=== PATIENT | female | born 1995 | race Native Hawaiian/Other Pacific Islander ===

== ENCOUNTER 2017-12-04 18:30 | Emergency (ER) | payer SELFPAY ==
[~2017-12-04] VITALS: Ht 175.3 cm; Wt 140.9 kg
[2017-12-04] MEDS ORDERED: ERYTHROMYCIN 0.5% 3.5 GM TUBE OPHTHALMIC OINTMENT OD ONE (19:45)
[2017-12-04 20:18] VITALS: BP 129/90
== END 2017-12-04 20:54 | disposition home or self-care (01) ==
LOC: EMS 18:31
DX: H10.9 Unspecified conjunctivitis (principal); R03.0 Elevated blood-pressure reading, without diagnosis of hypertension; Z88.0 Allergy status to penicillin

== ENCOUNTER 2018-11-23 13:08 | Emergency (ER) | payer MEDICAID ==
[~2018-11-23] VITALS: Ht 177.8 cm; Wt 150.0 kg
[2018-11-23 15:19] VITALS: BP 137/75
== END 2018-11-23 15:32 | disposition home or self-care (01) ==
LOC: EMS 13:09
DX: K08.89 Other specified disorders of teeth and supporting structures (principal); R03.0 Elevated blood-pressure reading, without diagnosis of hypertension; Z88.0 Allergy status to penicillin

== ENCOUNTER → 2023-11-21 | Emergency (ER) | payer MEDICAID, OTHER ==
[~2023-11-21] VITALS: Ht 177.8 cm; Wt 148.0 kg
[2023-11-21 12:33] VITALS: TEMP 98.6
[2023-11-21 13:23] LABS: COVID AG,FIA SOURCE NASAL SWAB
[2023-11-21 13:44] LABS: SARS-COV2 (COVID) ANTIGEN,FIA Negative (Negative)
[2023-11-21 13:45] LABS: INFLUENZA TYPE A NEGATIVE FOR TYPE A (NEGATIVE); INFLUENZA TYPE B NEGATIVE FOR TYPE B (NEGATIVE)
[2023-11-21 13:52] LABS: BASOPHILS % (AUTO) 0.4 % (0.0-2.0); EOSINOPHILS % (AUTO) 5.8 % (1.0-6.0); HEMATOCRIT 39.8 % (36-46); HEMOGLOBIN 13.3 g/dL (12.0-16.0); LYMPHOCYTES # (AUTO) 2.7 K/uL (1.0-4.8); LYMPHOCYTES % (AUTO) 25.6 % (22.0-44.0); MEAN CORPUSCULAR HEMOGLOBIN 28.6 pg (26.0-34.0); MEAN CORPUSCULAR HGB CONC 33.5 G/dL (31.0-37.0); MEAN CORPUSCULAR VOLUME 85 fL (80-100); MONOCYTES # (AUTO) 0.9 K/uL (0.1-1.0); MONOCYTES % (AUTO) 8.6 % (2.0-9.0); NEUTROPHILS # (AUTO) 6.2 K/uL (1.8-7.7); NEUTROPHILS % (AUTO) 59.6 % (40.0-70.0); PLATELET COUNT (AUTO) 367 K/uL (150-450); RED BLOOD CELL COUNT(AUTO) 4.66 MIL/uL (4.00-5.20); RED CELL DISTRIBUTION WIDTH 13.3 % (11.5-14.5); WHITE BLOOD COUNT (AUTO) 10.5 K/uL (4.5-11.0)
[2023-11-21 13:59] LABS: CALCIUM, TOTAL 9.3 mg/dL (8.8-10.5); CARBON DIOXIDE 24 mmol/L (22-29); CREATININE 0.71 mg/dL (0.60-1.30); GLOMERULAR FILTR. RATE CALC > 60 mL/min (>60); GLUCOSE,RANDOM 109 mg/dL (70-110); UREA NITROGEN, BLOOD 12 mg/dL (7-18)
[2023-11-21 14:07] LABS: TROPONIN I-HIGH SENSITIVITY Less Than 4 ng/L (<51)
[2023-11-21 14:25] LABS: ANION GAP 6 mmol/L (8-16); CHLORIDE 107 mmol/L (98-107); HCG,QUANTITATIVE < 1 mIU/mL (0-6); POTASSIUM 3.7 mmol/L (3.5-5.1); SODIUM SERUM 137 mmol/L (136-145)
[2023-11-21 15:15] VITALS: BP 120/77; PULSE 80; RESP 16; O2SAT 99
== END | disposition still patient (30) ==
LOC: EMS 12:30
DX: F41.9 Anxiety disorder, unspecified (principal); R07.89 Other chest pain; Z88.0 Allergy status to penicillin; Z20.822 Contact with and (suspected) exposure to COVID-19
CPT/HCPCS: 71045; 80048; 84484; 84702; 85025; 87804; 93005; 99285; 36415-L1; 36415-TC

== ENCOUNTER 2024-02-19 06:40 | Emergency (ER) | payer OTHER ==
[~2024-02-19] VITALS: Ht 177.8 cm; Wt 177.3 kg
[2024-02-19] MEDS ORDERED: GUAI177L20 PO (06:51)
[2024-02-19] MEDS ORDERED: ACET-2247 PO (06:51)
[2024-02-19 06:52] VITALS: TEMP 98.5
[2024-02-19 07:22] LABS: COVID AG,FIA SOURCE NASAL SWAB
[2024-02-19 08:09] LABS: INFLUENZA TYPE A POSITIVE FOR TYPE A (NEGATIVE); SARS-COV2 (COVID) ANTIGEN,FIA Negative (Negative)
[2024-02-19 08:10] LABS: INFLUENZA TYPE B NEGATIVE FOR TYPE B (NEGATIVE)
[2024-02-19] MEDS ORDERED: BENZ-227 PO ×2 (08:26→16:13)
[2024-02-19] MEDS: IBUPROFEN 400 MG TABLET PO ONE (08:35)
[2024-02-19] MEDS: ACETAMINOPHEN 325 MG TABLET PO ONE (08:35)
[2024-02-19] MEDS: BENZONATATE 100 MG CAPSULE PO ONE (08:35)
[2024-02-19 08:49] VITALS: BP 124/82; PULSE 89; RESP 18; O2SAT 99
== END 2024-02-19 08:49 | disposition home or self-care (01) ==
LOC: EMS 06:42
DX: J10.1 Influenza due to other identified influenza virus with other respiratory manifestations (principal); Z88.0 Allergy status to penicillin; Z20.822 Contact with and (suspected) exposure to COVID-19
CPT/HCPCS: 87804; 99284; Z7502; Z7610